=== PATIENT | male | born 1980 | race African-American/Black ===

== ENCOUNTER 2022-09-18 03:36 | Emergency (ER) | payer MEDICAID, OTHER ==
[~2022-09-18] VITALS: Ht 162.6 cm; Wt 75.0 kg
[2022-09-18 03:40] VITALS: BP 137/84
[2022-09-18] MEDS ORDERED: LORazepam 2MG/ML-1ML VIAL IM ONE (04:00)
[2022-09-18 04:27] LABS: Basophils # (auto) 0.1 10 ^3/uL (0-0.2); Basophils % (auto) 0.8 % (0.0-2.0); Eosinophils # (auto) 0 10 ^3/uL (0-0.8); Eosinophils % (auto) 0.1 % (0.0-7.0); Hematocrit 41.4 % (41.0-53.0); Hemoglobin 13.8 g/dL (13.5-17.5); Lymphocytes % (auto) 14.4 % (10.0-50.0); Mean Corpuscular Hemoglobin 27.6 pg (28.0-32.0); Mean Corpuscular Hgb Conc. 33.2 g/dL (32.0-36.0); Mean Corpuscular Volume 83.2 fL (80.0-100.0); Monocytes # (auto) 0.4 10 ^3/uL (0-1.3); Monocytes % (auto) 6.4 % (0.0-12.0); Neutrophils # (auto) 5.4 10 ^3/uL (1.6-8.6); Neutrophils % (auto) 78.3 % (37.0-80.0); Nucleated Red Blood Cells % 0.1 %; Red Blood Cells 4.98 10^6/uL (4.5-5.90); Red Cell Distribution Width 15.3 % (11.8-14.3); White Blood Cell 6.9 10^3/uL (4.4-10.8)
[2022-09-18 04:41] LABS: Albumin 3.7 g/dL (3.4-5.0); BUN/Creatinine Ratio 11.1 (10.0-20.0); Calcium 8.6 mg/dL (8.5-10.1)
[2022-09-18 04:52] LABS: Potassium 2.8 mmol/L (3.5-5.1)
[2022-09-18 04:53] LABS: Bilirubin, Total 0.2 mg/dL (0.2-1.0); Total Protein 7.1 g/dL (6.4-8.2)
[2022-09-18] MEDS ORDERED: POTASSIUM EFFERVESENT TAB 25 MEQ PO ONE (05:00)
== END 2022-09-18 06:20 | disposition left against medical advice (07) ==
LOC: ER 03:36
DX: R00.2 Palpitations (principal); R00.0 Tachycardia, unspecified; Z53.21 Procedure and treatment not carried out due to patient leaving prior to being seen by health care provider
CPT/HCPCS: 36415; 71045; 80053; 84484; 85025; 93005; 99281; J2060